=== PATIENT | male | born 1955 | race Caucasian/White ===

== ENCOUNTER 2021-04-14 04:12 | Inpatient (IN) | payer MEDICARE, OTHER ==
[~2021-04-14] VITALS: Ht 177.8 cm; Wt 80.3 kg
[~2021-04-14 04:12] MED LIST: ATOR40TA PO; Aspirin PO; CLOP75TA15 PO; METO25TA20 PO; NICO1PAT28 TD
--- NOTE | 2021-04-14 04:20 | NUR ---
PT AAOX4. BIBRA 37 FROM HOME C/O SUDDEN ONSET SOB, ON ROOM AIR SAT 70'S. PT WAS GIVEN 5 SPRAYS OF NITRO, PLACED ON 15L NR, SAT 97%. PLACED IN BED 5 IN GOWN, ON LINE PREP COOK, AND PULSE OX. ER MD AT BEDSIDE FOR EVAL. RT AT BEDSIDE WELL. AWAITING ORDERS. WILL CONTINUE TO MONITOR.
[2021-04-14] MEDS ORDERED: ENALAPRILAT DIHYD. (2.5MG/2ML) 1.25 MG/ML VIAL IV ONE ×2 (04:23→04:30)
[2021-04-14] MEDS ORDERED: FUROSEMIDE 40 MG/4 ML VIAL ONE (04:24)
[2021-04-14] MEDS ORDERED: NTG 50 MG/D5W250 ML BOTTL 250 ML IV ONE (04:24)
--- NOTE | 2021-04-14 04:25 | NUR ---
PLACED ON BIB 18/ RATE 18, 50%.
--- NOTE | 2021-04-14 04:28 | NUR ---
RADIOLOGY AT BEDSIDE
[2021-04-14] MEDS ORDERED: NTG 50 MG/D5W250 ML BOTTL 50 MG/250 ML BTL IV ONE (04:30)
[2021-04-14] MEDS ORDERED: FUROSEMIDE 40 MG/4 ML VIAL IV ONE (04:30)
[2021-04-14 04:31] LABS: BASOPHILS # (AUTO) 0.1 K/uL (0.0-0.2); BASOPHILS % (AUTO) 1.1 % (0.0-2.0); EOSINOPHILS % (AUTO) 2.5 % (0.0-6.0); HEMATOCRIT 46 % (39-51); HEMOGLOBIN 14.6 g/dL (13.5-17.5); LYMPHOCYTES # (AUTO) 4.4 K/uL (0.8-4.8); LYMPHOCYTES % (AUTO) 34.2 % (20.0-44.0); MEAN CORPUSCULAR HGB CONC 32 g/dl (31.0-36.0); MEAN CORPUSCULAR VOLUME 94 fL (80-96); MONOCYTES # (AUTO) 0.6 K/uL (0.1-1.30); MONOCYTES % (AUTO) 4.8 % (2.0-12.0); NEUTROPHILS # (AUTO) 7.3 K/uL (1.8-8.9); NEUTROPHILS % (AUTO) 57.4 % (43.0-81.0); PLATELET COUNT (AUTO) 326 K/uL (150-450); RED BLOOD CELL COUNT(AUTO) 4.86 MIL/uL (4.5-6.0); WHITE BLOOD COUNT (AUTO) 12.8 K/uL (4.3-11.0)
--- NOTE | 2021-04-14 04:31 | NUR ---
BLOOD WORK COLLECTED, SENT TO LAB.
--- NOTE | 2021-04-14 04:35 | NUR ---
RT pt came in for sob. placed on bipap per md order. bipap settings: 18/5. rate 18, 50%. ambu bag at bedside. pt awake and alert, tolerating at this time. will continue to monitor.
[2021-04-14 04:53] LABS: ALBUMIN 3.8 g/dL (3.4-5.0); BILIRUBIN,DIRECT 0.1 mg/dL (0.0-0.2); BILIRUBIN,TOTAL 0.4 mg/dL (0.2-1.0); CALCIUM, SERUM 8.6 mg/dL (8.5-10.1); CREATININE 1.4 mg/dL (0.6-1.3); POTASSIUM 3.6 mmol/L (3.5-5.1); TOTAL PROTEIN, SERUM 8.6 g/dL (6.4-8.2)
[2021-04-14] MEDS ORDERED: LORAZEPAM INJ 2 MG/ML VIAL ONE (05:08)
[2021-04-14] MEDS ORDERED: LORAZEPAM INJ 2 MG/ML VIAL IV ONE (05:30)
[2021-04-14] MEDS ORDERED: MORPHINE SULFATE INJ 2 MG/ML DISP.SYRIN IV PRN (07:00)
[2021-04-14] MEDS ORDERED: HYDROCODONE/APAP 5/325MG TABLET PO PRN (07:00)
[2021-04-14] MEDS ORDERED: MAG HYDROX/AL HYDROX/SIMETH 30 ML UDC PO PRN (07:00)
[2021-04-14] MEDS ORDERED: ONDANSETRON HCL/PF 4 MG/2 ML VIAL IVP PRN (07:00)
[2021-04-14] MEDS ORDERED: Z GUARD REMEDY 2 OZ OINT TP PRN (07:00)
[2021-04-14] MEDS ORDERED: INSULIN REGULAR, HUMAN 100 UNIT/ML 3 ML VIAL SQ PRN (07:00)
[2021-04-14] MEDS ORDERED: DEXTROSE 50%-WATER 50 ML DISP.SYRIN IV PRN (07:00)
[2021-04-14] MEDS ORDERED: ACETAMINOPHEN 325 MG TABLET PO PRN (07:00)
[2021-04-14] MEDS ORDERED: MAGNESIUM HYDROXIDE 30 ML UDC PO PRN (07:00)
--- NOTE | 2021-04-14 08:01 | NUR ---
GOT ROOM 104.
[2021-04-14] MEDS: BLOOD SUGAR DIAGNOSTIC 1 EACH STRIP IN SCH ×4 (08:03→21:30)
[2021-04-14] MEDS ORDERED: GABA-532 PO (08:58)
[2021-04-14] MEDS ORDERED: MEMA10TA56 PO (08:59)
[2021-04-14] MEDS ORDERED: LINA145C PO (08:59)
[2021-04-14] MEDS ORDERED: ASPI-1169 PO (08:59)
[2021-04-14] MEDS ORDERED: ESOM40CA52 PO (08:59)
[2021-04-14] MEDS ORDERED: ICOS1CAP PO (08:59)
[2021-04-14] MEDS ORDERED: SERT50TA12 PO (08:59)
[2021-04-14] MEDS ORDERED: TICA90TA PO (08:59)
[2021-04-14] MEDS ORDERED: TAMS-12 PO (08:59)
[2021-04-14] MEDS ORDERED: SACU1TAB7 PO (08:59)
[2021-04-14] MEDS ORDERED: ATOR20TA PO (08:59)
--- NOTE | 2021-04-14 09:07 | NUR ---
report given to manolo london for sally
[2021-04-14 09:30] VITALS: BP 97/61
--- NOTE | 2021-04-14 09:30 | NUR ---
TD RN NOTES ADMITTED FROM ER, DX CHF EXACERBATION, BY DR. NASIR KIM, AOX 3, SPEAKS IRISH/INDONESIAN, ON 4L O2 NASAL CANULA, NO SOB, NOT IN DISTRESS, RESPIRATION UNLABORED, SINUS RHYTHM HR 76 ON MONITOR, DENIES CHEST DISCOMFORT/PAIN. WITH IV ACCESS AT FOLLOWING SITES RT HAND G 18, RT AC G 18, RT FOREARM G 18, ALL FLUSHES WELL, ALL SITES CLEAR. PATIENT'S SHORTS WET, OFFERED TO CHANGE BUT REFUSED. SKIN INTACT. CARDIAC DIET. BRP. UNIT ORIENTATION AND USE OF CALL LIGHT DONE. SAFETY MEASURES IN PLACE, BED LOW LOCKED, SR UP X 2, WILL CONTINUE TO MONITOR.
--- NOTE | 2021-04-14 09:37 | NUR ---
patient transferred to room 108 ins table condition.
[2021-04-14] MEDS: PANTOPRAZOLE 40 MG TABLET.DR PO SCH (10:03)
[2021-04-14] MEDS: ENOXAPARIN SODIUM 40 MG/0.4 ML DISP.SYRIN SQ SCH (10:04)
[2021-04-14] MEDS: ASPIRIN 81 MG TAB.CHEW PO SCH (10:05)
[2021-04-14] MEDS: FUROSEMIDE 40 MG/4 ML VIAL IV SCH (10:05)
--- NOTE | 2021-04-14 10:59 | NUR ---
RN NOTES SPOKE WITH MARINE - , TO BRING THE FOLLOWING MEDICATIONS - LINZESS, ENTRESTO, VASCEPA. INSTRUCTED TO TELL SECURITY AT LOBBY AND WILL PICK IT UP.
[2021-04-14 12:00] VITALS: BP 100/53
[2021-04-14 13:22] VITALS: BP 97/61
[2021-04-14] MEDS: VASCEPA 1 GM PO SCH (16:38)
[2021-04-14] MEDS: ENTRESTO PO SCH (16:38)
[2021-04-14] MEDS: TICAGRELOR 90 MG TABLET PO SCH (16:39)
--- NOTE | 2021-04-14 17:04 | NUR ---
RN NOTES PT'S MARINE AT BEDSIDE. NOTIFIED DR. PASCUAL THAT PATIENT WANTS TO TALK TO HIM OR HAVE HIS DAUGHTER ANI TALK TO HIM. PATIENT WANTS TO GO HOME INSTEAD DESPITE EXPLAINING TO HIM THAT HE IS BEING TREATED FRO HEART FAILURE. STATED " I CANT NOT STAY HERE DOING NOTHING". PHONE NUMBER OF ANI - DAUGHTER - [phone].
--- NOTE | 2021-04-14 18:14 | NUR ---
RN NOTES PT REFUSES MASK OXYGEN. SAYS HE FEELS UNCOMFORTABLE. PT TOLERATING ROOM AIR
--- NOTE | 2021-04-14 18:30 | NUR ---
RN CLOSING NOTES PT ADMITTED FROM ER, DX CHF EXACERBATION, AOX 4, SPEAKS MONGOLIAN/GERMAN, ON 4L O2 NASAL CANULA. HOWEVER, HE TAKES IT OFF THE OXYGEN MASKS INTERMITTENTLY SAYING IT FEELS UNCOMFORTABLE. NO SOB, OR DISTRESS, RESPIRATION UNLABORED, SINUS RHYTHM HR 70 ON MONITOR, DENIES CHEST DISCOMFORT/PAIN. WITH IV ACCESS AT FOLLOWING SITES RT HAND G 18, RT AC G 18, RT FOREARM G 18, ALL FLUSHES WELL, ALL SITES CLEAR. PATIENT'S SHORTS WET, OFFERED TO CHANGE BUT REFUSED. URINE SAMPLE COLLECTED. SKIN INTACT. CARDIAC DIET. BRP. UNIT ORIENTATION AND USE OF CALL LIGHT DONE. SAFETY MEASURES IN PLACE, BED LOW LOCKED, SR UP X 2, WILL ENDORSE TO DIRECTOR OF PULMONARY UNIT
--- NOTE | 2021-04-14 19:00 | NUR ---
RN NOTE RECEIVED PATIENT IN BED RESTING ALERT ORIENTED X4 VERBALLY RESPONSIVE ON 4L OXYGEN VIA NASAL CANNULA O2:97% IV SITE IS ON RIGHT AC,RIGHT FOREARM AND RIGHT HAND INTACT PATENT CONTINET BOWEL/BLADDER SAFETY MEASURE IMPLEMENT CALL LIGHT WITHIN REACH CONTINUE TO MONITOR.
[2021-04-14 20:00] VITALS: BP 87/49
[2021-04-14] MEDS ORDERED: TAMSULOSIN 0.4 MG CAP.SR.24H PO SCH (22:00)
[2021-04-14] MEDS ORDERED: ATORVASTATIN 10 MG TABLET PO SCH (22:00)
[2021-04-14 22:57] LABS: BILIRUBIN,URINE NEGATIVE (NEGATIVE); COLOR,URINE YELLOW (YELLOW); LEUKOCYTE ESTERASE ,URINE NEGATIVE (NEGATIVE); NITRITE, URINE NEGATIVE (NEGATIVE); PROTEIN,URINE NEGATIVE (NEGATIVE); UGLUCOSE NEGATIVE (NEGATIVE); UROBILINOGEN,URINE 0.2 EU/dL (0.2)
[2021-04-15] VITALS: BP 87/49
[2021-04-15 04:00] VITALS: BP 90/35
[2021-04-15] MEDS: ENOXAPARIN SODIUM 40 MG/0.4 ML DISP.SYRIN SQ SCH (06:29)
[2021-04-15 06:33] LABS: BASOPHILS % (AUTO) 0.4 % (0.0-2.0); EOSINOPHILS % (AUTO) 1.7 % (0.0-6.0); HEMATOCRIT 42 % (39-51); HEMOGLOBIN 13.8 g/dL (13.5-17.5); LYMPHOCYTES # (AUTO) 1.8 K/uL (0.8-4.8); LYMPHOCYTES % (AUTO) 21.4 % (20.0-44.0); MEAN CORPUSCULAR HGB CONC 33 g/dl (31.0-36.0); MEAN CORPUSCULAR VOLUME 92 fL (80-96); MONOCYTES # (AUTO) 0.6 K/uL (0.1-1.30); MONOCYTES % (AUTO) 7.1 % (2.0-12.0); NEUTROPHILS % (AUTO) 69.4 % (43.0-81.0); PLATELET COUNT (AUTO) 261 K/uL (150-450); RED BLOOD CELL COUNT(AUTO) 4.53 MIL/uL (4.5-6.0); WHITE BLOOD COUNT (AUTO) 8.6 K/uL (4.3-11.0)
--- NOTE | 2021-04-15 06:48 | NUR ---
RN NOTE PATIENT REMAINS ON ALERT ORIENTED X4 VERBALLY RESPONSIVE NO SOB NOT ACUTE DISTRESS NOTED HE IS ON 3L OXYGEN VIA NASAL CANNULA O2:97% ALL DUE MEDS GIVEN MD ORDERED ENDORSE NEXT COMING SHIFT FOR CONTINUATION OF CARE
[2021-04-15 07:07] LABS: ALBUMIN 3.2 g/dL (3.4-5.0); BILIRUBIN,TOTAL 0.8 mg/dL (0.2-1.0); CALCIUM, SERUM 8.2 mg/dL (8.5-10.1); CREATININE 1.1 mg/dL (0.6-1.3); PHOSPHORUS 3.4 mg/dL (2.5-4.9); POTASSIUM 3.5 mmol/L (3.5-5.1); TOTAL PROTEIN, SERUM 7.1 g/dL (6.4-8.2)
[2021-04-15] MEDS: BLOOD SUGAR DIAGNOSTIC 1 EACH STRIP IN SCH (07:41)
[2021-04-15 08:00] VITALS: BP 96/67
--- NOTE | 2021-04-15 08:00 | NUR ---
RN NOTES Received patient in bed awake alert X$, able to make needs known, on oxygen inhalation at 3 lpm via nasal canula, no SOB noted, no sign and symptoms of pain at this time. with peripheral access on RFA G 22 patent and flushes well. Safety measyures in place, HOB elevated, call lights within reach at all times. will continue to monitor closely.
[2021-04-15] MEDS: PANTOPRAZOLE 40 MG TABLET.DR PO SCH (08:01)
--- NOTE | 2021-04-15 08:20 | NUR ---
RN NOTES Went to patient room to check, Patient is upset and wanted to go home stating that " He never see the doctor, he is bored and nothing wrong with hime he just want to go home, Dr Cannon informed
[2021-04-15] MEDS: ASPIRIN 81 MG TAB.CHEW PO SCH (08:24)
[2021-04-15] MEDS: TICAGRELOR 90 MG TABLET PO SCH (08:31)
[2021-04-15] MEDS: VASCEPA 1 GM PO SCH (08:32)
[2021-04-15] MEDS: ENTRESTO PO SCH (08:33)
--- NOTE | 2021-04-15 08:40 | NUR ---
RN NOTES Seen and examined by Dr. Cannon, explained to him that he can go AMA if he wants but Cardio Doctor will be here soon to check on him if he wanted to wait for the doctor. Patient agreed to wait for Doctor Boni
[2021-04-15] MEDS: FUROSEMIDE 40 MG/4 ML VIAL IV SCH (09:00)
[2021-04-15] MEDS ORDERED: GABAPENTIN 100 MG CAPSULE PO SCH (09:00)
[2021-04-15] MEDS ORDERED: SERTRALINE HCL 50 MG TABLET PO SCH (09:00)
[2021-04-15] MEDS ORDERED: ASPIRIN 81 MG TAB.CHEW PO SCH (09:00)
[2021-04-15] MEDS ORDERED: Medication Not On Formulary EA (Esomeprazole Magnesium 40 MG) PO SCH (09:00)
[2021-04-15] MEDS ORDERED: MEMANTINE HCL 5 MG TABLET PO SCH (09:00)
[2021-04-15] MEDS ORDERED: LINZESS 145 MG PO SCH (09:00)
--- NOTE | 2021-04-15 09:00 | NUR ---
RN NOTES Seen and examined by Dr Plata, Patient still insisting he wanted to go AMA
--- NOTE | 2021-04-15 09:40 | NUR ---
RN NOTES Patient in bed, no pain noted, not in distressed, patient seen and examined by Dr Cannon and Dr Plata, still wanted to leave, discussed risk and benefits to the patient still wanted to leave, health teaching discussed with the patient instructed pt to see primary doctor PARK and to return to ER in case of emergency verbalize understanding all IV lines removed, all belongings accounted for, assisted patient to hospital lobby stated that he will be picked up by his .Charge nurse, Nursing burling and joining supervisor, Dr Cannon informed
--- NOTE | 2021-04-15 09:40 | NUR ---
RN NOTES Patient went on AMA, risk explained to the patient. All belonging and medication given.
== END 2021-04-15 09:44 | disposition left against medical advice (07) | DRG 280 ==
LOC: ER 04:14 → TELE1 08:06 → TELE-TD 10:01 → TELE1 04-15 07:39
PROVIDERS: ADMIT Internal Medicine; ATTEND Internal Medicine
DX: I11.0 Hypertensive heart disease with heart failure (principal); J96.01 Acute respiratory failure with hypoxia; I21.4 Non-ST elevation (NSTEMI) myocardial infarction; I50.23 Acute on chronic systolic (congestive) heart failure; N17.9 Acute kidney failure, unspecified; I16.1 Hypertensive emergency; J84.9 Interstitial pulmonary disease, unspecified; G93.49 Other encephalopathy; I25.10 Atherosclerotic heart disease of native coronary artery without angina pectoris; I25.2 Old myocardial infarction; G62.9 Polyneuropathy, unspecified; E78.5 Hyperlipidemia, unspecified; Z95.5 Presence of coronary angioplasty implant and graft; N40.0 Benign prostatic hyperplasia without lower urinary tract symptoms; Z87.891 Personal history of nicotine dependence; Z20.822 Contact with and (suspected) exposure to COVID-19
CPT/HCPCS: 36415; 71045-TC; 76770-TC; 80048-TC; 80053-TC; 80061-TC; 80076-TC; 82570-TC; 82962-TC; 83735-TC; 83880; 84100-TC; 84484-TC; 85025-TC; 85378-TC; 85730-TC; 87081-TC; 93307-TC; 93970-TC; C9803; G0378; J1650; J1815; J1940; J2060; J3490